=== PATIENT | male | born 1955 | race Caucasian/White ===

== ENCOUNTER 2017-01-15 12:01 | Emergency (ER) | payer MEDICAID ==
[2017-01-15 12:07] VITALS: RESP 16
[2017-01-15] MEDS ORDERED: OXYCODONE/APAP 5/325 TAB PO ONE (12:44)
[2017-01-15] MEDS ORDERED: LORazepam 1 MG TAB PO ONE (12:45)
--- NOTE | 2017-01-15 12:49 | EDPHY ---
H & P Stated Complaint: pt states has abcess near his umbilicus - Personal History Current Tetanus/Diphtheria Vaccine: Unsure - Medical/Surgical History Hx Asthma: No Hx Chronic Respiratory Disease: No Hx Diabetes: No Hx Cardiac Disease: No Hx Renal Disease: No Hx Cirrhosis: No Hx Alcoholism: Yes Hx HIV/AIDS: No Hx Splenectomy or Spleen Trauma: No Other PMH: upper GI bleed, hernia repair, knee, back surgery. PTSD, TRAUMATIC BRAIN INJURY - Social History Smoking Status: Never smoked Time Seen by Provider: 01/15/17 12:36 HPI/ROS: I examined the patient at the request of Anne Dahl PA-C. Probable umbilical hernia. Plan for ultrasound for further evaluation. (Lobo Maria) CHIEF COMPLAINT: "I think I have an abscess on my stomach HISTORY OF PRESENT ILLNESS: 61-year-old homeless male complaining of 3 days of umbilical pain, concerned he may have an abscess in his umbilicus. No nausea or vomiting. No fever no chills. Bowel movements have been normal. No trauma. PRIMARY CARE PROVIDER: none REVIEW OF SYSTEMS: A ten point review of systems was performed and is negative with the exception of the items mentioned in the HPI PAST MEDICAL & SURGICAL HISTORY: Bilateral inguinal herniorrhaphy SOCIAL HISTORY:homeless PHYSICAL EXAM (Prior to examination, patient consented to physical exam, hands were washed and my usual and customary physical exam procedures followed) 1) GENERAL: Well-developed, well-nourished, alert and oriented. Appears to be in no acute distress. 2) HEAD: Normocephalic, atraumatic 3) HEENT: Pupils equal, round, reactive to light bilaterally. Sclera anicteric. 4) NECK: Full range of motion, no meningeal signs. 5) LUNGS: Clear auscultation bilaterally, no wheezes, no rhonchi, no retractions. 6) HEART: Regular rate and rhythm, no murmur, no heave, no gallop. 7) ABDOMEN: No guarding, evaluation of the patient's umbilicus reveals no discoloration, no signs of cutaneous abnormality, no signs of gangrene. He does have a palpable mass consistent with an umbilical hernia , 8) MUSCULOSKELETAL: No peripheral edema or discoloration. 9) BACK: no obvious trauma, no visual or palpable abnormality. 10) SKIN: No rash, no petechiae. 11) Psychiatric: Patient is oriented X 3, there is no agitation. DIFFERENTIAL DIAGNOSIS: in no particular order including but limited to umbilical hernia, strangulated hernia, incarcerated hernia (Shanelle Dahl) Constitutional: Initial Vital Signs Temperature (C) 36.5 C 01/15/17 12:05 Heart Rate 85 01/15/17 12:05 Respiratory Rate 16 01/15/17 12:05 Blood Pressure 144/94 H 01/15/17 12:05 O2 Sat (%) 95 01/15/17 12:05 O2 Delivery Mode Room Air Allergies/Adverse Reactions: No Known Allergies Allergy (Verified 01/15/17 12:04) Home Medications: Medication Instructions Recorded NK [No Known Home Meds] 01/15/17 Medical Decision Making - Diagnostics Imaging Results: Imaging Impressions Abdomen CT 01/15/17 13:54 Impression: 1. Small periumbilical abdominal wall hernia defect with inflamed herniated mesenteric fat. Recommend surgical consult. 2. L4-L5: Degenerative disk disease and facet arthropathy resulting in moderate central canal stenosis. Findings and recommendations discussed with Emergency Department physician's appeals assistant, Shanelle Dahl, at 1457 hours, 01/15/2017. Final report concurs with initial preliminary interpretation. ED Course/Re-evaluation: 3:01 p.m.: Phone consultation with Dr. Carolyn Gil who will come to the ER to evaluate patient 3:23 p.m.: Patient informs me that he has to leave in order to attend to personal matters, states that he cannot stay. I highly encouraged him to states that he made evaluated by the general surgeon however he declines this, states that [facility]. Given usual customary hernia precautions instructions. Given Dr. Carolyn Gil contact information. I believe him to be a competent decision maker (Shanelle Dahl) - Data Points Laboratory Results: Laboratory Results 01/15/17 13:55 01/15/17 13:55 01/15/17 01/15/17 01/15/17 13:56 13:55 13:55 WBC 7.47 10^3/uL 10^3/uL (3.80-9.50) RBC 4.65 10^6/uL 10^6/uL (4.40-6.38) Hgb 15.8 g/dL g/dL (13.7-17.5) POC Hgb 15.0 gm/dL gm/dL (13.7-17.5) Hct 43.3 % % (40.0-51.0) POC Hct 44 % % (40-51) MCV 93.1 fL fL (81.5-99.8) MCH 34.0 pg pg (27.9-34.1) MCHC 36.5 g/dL g/dL (32.4-36.7) RDW 13.2 % % (11.5-15.2) Plt Count 280 10^3/uL 10^3/uL (150-400) MPV 8.8 fL fL (8.7-11.7) Neut % (Auto) 69.0 % % (39.3-74.2) Lymph % (Auto) 23.4 % % (15.0-45.0) [place] % (Auto) 5.5 % % (4.5-13.0) Eos % (Auto) 0.9 % % (0.6-7.6) Baso % (Auto) 0.8 % % (0.3-1.7) Nucleat RBC Rel Count 0.0 % % (0.0-0.2) Absolute Neuts (auto) 5.15 10^3/uL 10^3/uL (1.70-6.50) Absolute Lymphs (auto) 1.75 10^3/uL 10^3/uL (1.00-3.00) Absolute Monos (auto) 0.41 10^3/uL 10^3/uL (0.30-0.80) Absolute Eos (auto) 0.07 10^3/uL 10^3/uL (0.03-0.40) Absolute Basos (auto) 0.06 10^3/uL 10^3/uL (0.02-0.10) Absolute Nucleated RBC 0.00 10^3/uL 10^3/uL (0-0.01) Immature Gran % 0.4 % % (0.0-1.1) Immature Gran # 0.03 10^3/uL 10^3/uL (0.00-0.10) POC Sodium 140 mEq/L mEq/L (134-144) Sodium 138 mEq/L mEq/L (134-144) POC Potassium 3.4 mEq/L mEq/L (3.3-5.0) Potassium 3.9 mEq/L mEq/L (3.5-5.2) POC Chloride 103 mEq/L mEq/L (97-110) Chloride 103 mEq/L mEq/L (97-110) Carbon Dioxide 23 mEq/l mEq/l (22-31) Anion Gap 12 mEq/L mEq/L (8-16) POC BUN 11 mg/dL mg/dL (7-23) BUN 12 mg/dL mg/dL (7-23) Creatinine 0.8 mg/dL mg/dL (0.7-1.3) POC Creatinine 0.8 mg/dL mg/dL (0.7-1.3) Estimated GFR > 60 Glucose 77 mg/dL mg/dL (70-100) POC Glucose 85 mg/dL mg/dL (70-100) Calcium 9.0 mg/dL mg/dL (8.5-10.4) Medications Given: Discontinued Medications Lorazepam (Ativan) 1 mg PO EDNOW ONE Stop: 01/15/17 12:46 Last Admin: 01/15/17 13:05 Dose: 1 mg Oxycodone/Acetaminophen (Percocet 5/325) 1 tab PO EDNOW ONE Stop: 01/15/17 12:45 Last Admin: 01/15/17 13:04 Dose: 1 tab Point of Care Test Results: 01/15/17 13:56 POC Sodium 140 POC Potassium 3.4 POC Chloride 103 POC BUN 11 POC Creatinine 0.8 POC Glucose 85 Departure - Departure Disposition: Home, Routine, Self-Care Clinical Impression: Umbilical hernia Condition: Good Instructions: Umbilical Hernia (ED) Additional Instructions: In my medical opinion you necessitate further evaluation from the emergency department including evaluation by surgeon. You have declined this. You may return to the emergency department at any point for re-evaluation. You have been given the name of the general surgeon Dr. Carolyn Gil. Please make an appointment with her. Referrals: Carolyn Gil MD [Medical Doctor] - 1 day without fail (Dr Gil is a surgeon)
[2017-01-15 14:09] LABS: % IMMATURE GRANULYOCYTES 0.4 % (0.0-1.1); ABSOLUTE IMMATURE GRANULOCYTES 0.03 10^3/uL (0.00-0.10); ADD DIFF? NO; ADD MORPH? NO; ADD SCAN? NO; ATYPICAL LYMPHOCYTE FLAG 0 (0-99); FRAGMENT RBC FLAG 0 (0-99); HEMATOCRIT 43.3 % (40.0-51.0); HEMOGLOBIN 15.8 g/dL (13.7-17.5); LEFT SHIFT FLG 0 (0-99); LIPEMIA HEMOLYSIS FLAG 90 (0-99); MEAN CELL HEMOGLOBIN CONCENTR. 36.5 g/dL (32.4-36.7); MEAN CELL VOLUME 93.1 fL (81.5-99.8); MEAN PLATELET VOLUME 8.8 fL (8.7-11.7); PLATELET CLUMPS FLAG 0 (0-99); PLATELET COUNT 280 10^3/uL (150-400); RED BLOOD CELL COUNT 4.65 10^6/uL (4.40-6.38); RED CELL DISTRIBUTION WIDTH 13.2 % (11.5-15.2)
[2017-01-15] MEDS ORDERED: IOPAMIDOL (ISOVUE-300) 100 ML BTL ONE (14:09)
[2017-01-15 14:21] LABS: ANION GAP 12 mEq/L (8-16); CARBON DIOXIDE 23 mEq/l (22-31); CHLORIDE 103 mEq/L (97-110); CREATININE 0.8 mg/dL (0.7-1.3); GLOMERULAR FILTRATION RATE > 60; GLUCOSE 77 mg/dL (70-100); POTASSIUM 3.9 mEq/L (3.5-5.2); SODIUM 138 mEq/L (134-144)
[2017-01-15 15:43] VITALS: BP 128/76; PULSE 81; TEMP 99.7; O2SAT 97
--- NOTE | 2017-01-15 17:14 | GCON ---
[f rep st] CONSULTATION DATE OF CONSULTATION: 01/15/2017 CHIEF COMPLAINT: Umbilical hernia. HISTORY OF PRESENT ILLNESS: The patient is a 61-year-old man who noticed a bulge of his left umbilic us about 3 days ago. It has been increasing in size and becoming more tender. He denies any overlyi ng skin changes, such as redness, swelling, or an open wound. He was originally worried about an inf ection. He denies any nausea, vomiting, fevers, chills, change in bowel habits, or difficulties with urination. He had an abdominal CT performed, which showed a small periumbilical hernia with incarce rated fat. When asked about his availability for surgery, the patient states that he is homeless, an d he has to get back to his camp site this evening in order to ensure that his stuff is safe, and can not have surgery today. PAST MEDICAL HISTORY: Traumatic brain injury. PAST SURGICAL HISTORY: Bilateral inguinal hernia repairs, knee replacement, shoulder replacement, ba ck surgery. ALLERGIES: No known drug allergies. SOCIAL HISTORY: He denies tobacco or recreational drug use. He is homeless. FAMILY HISTORY: Not obtained. REVIEW OF SYSTEMS: A 10-point review of systems negative aside from the HPI. PHYSICAL EXAMINATION: GENERAL: Well-developed, well-nourished man, in no acute distress. HEENT: N ormocephalic, atraumatic. No hearing deficits. Pupils equal and round. No scleral icterus. Mucous membranes moist. NECK: Trachea midline. RESPIRATORY: Clear to auscultation bilaterally. No incr eased work of breathing. CARDIOVASCULAR: Regular rate and rhythm. No peripheral edema. ABDOMEN: Bowel sounds heard throughout, soft, nondistended. Small left periumbilical hernia, not reducible. No overlying skin changes, very tender to palpation. MUSCULOSKELETAL: Normal gait. Normal nails. SKIN: Warm and dry. PSYCH: Mood and affect normal. NEURO: Grossly intact. IMPRESSION AND PLAN: A 61-year-old man with an incarcerated umbilical hernia. He is unwilling to un dergo surgical repair at this time, but is available later in the week for elective repair. He will come to our office to confirm a surgery date and time, but likely this coming Saturday. We discussed r isks of surgery including, but not limited to, heart attack, stroke, blood clots or . We discus sed risk of infection, bleeding, damage to surrounding structures, or recurrence. He understands the risks and would like to proceed. We anticipate this to be an outpatient procedure. Warning signs w ere given for any worsening symptoms to return to the emergency room. He understands to call with wo rsening symptoms, questions, or concerns. Case was discussed with Dr. Carolyn Gil. /[id number]/MODL
== END 2017-01-15 15:35 | disposition home or self-care (01) ==
DX: K42.9 Umbilical hernia without obstruction or gangrene (principal)
CPT/HCPCS: 82947-QW; Q9967

== ENCOUNTER 2017-02-19 13:09 | Emergency (ER) | payer MEDICAID ==
--- NOTE | 2017-02-19 13:20 | EDPHY ---
H & P Time Seen by Provider: 02/19/17 13:19 HPI/ROS: CHIEF COMPLAINT: Chronic low back pain HISTORY OF PRESENT ILLNESS: The patient presents to the ED with complaints of chronic low back pain with bilateral lower extremity radiculopathy. The patient reportedly has a history of prior laminectomy. He has had chronic back pain with ongoing sharp referred pain into his legs over the past year and half. The patient has not had any recent follow-up appointment with either his primary care provider or spine surgeon. The patient denies bowel or bladder dysfunction. REVIEW OF SYSTEMS: A comprehensive 10 point review of systems is otherwise negative aside from elements mentioned in the history of present illness. Source: Patient - Medical/Surgical History Hx Asthma: No Hx Chronic Respiratory Disease: No Hx Diabetes: No Hx Cardiac Disease: No Hx Renal Disease: No Hx Cirrhosis: No Hx Alcoholism: Yes Hx HIV/AIDS: No Hx Splenectomy or Spleen Trauma: No Other PMH: upper GI bleed, hernia repair, knee, back surgery. PTSD, TRAUMATIC BRAIN INJURY - Social History Smoking Status: Never smoked - Physical Exam Exam: General Appearance: Alert, no distress Eyes: Pupils equal and round no pallor or injection ENT, Mouth: Mucous membranes moist Respiratory: There are no retractions, lungs are clear to auscultation Cardiovascular: Regular rate and rhythm Gastrointestinal: Abdomen is soft and nontender, no masses, bowel sounds normal Neurological: Alert and oriented x4, 5/5 strength noted bilateral lower extremities, DTRs 2+ bilaterally, no clonus, no saddle anesthesia Skin: Warm and dry, no rashes Musculoskeletal: Neck is supple nontender Extremities: symmetrical, full range of motion Constitutional: Initial Vital Signs Temperature (C) 36.3 C 02/19/17 13:20 Heart Rate 80 02/19/17 13:20 Respiratory Rate 18 02/19/17 13:20 Blood Pressure 115/67 02/19/17 13:20 O2 Sat (%) 93 02/19/17 13:20 O2 Delivery Mode Room Air Allergies/Adverse Reactions: No Known Allergies Allergy (Verified 02/19/17 13:20) Home Medications: Medication Instructions Recorded Cyclobenzaprine [Flexeril 10 MG 10 mg PO TID PRN #15 tab 02/19/17 (*)] Lidocaine 5% [Lidoderm 5% Patch 1 ea TD DAILY #12 patch 02/19/17 (*)] methylPREDNISolone [Medrol Dose 1 each PO AD #1 ea 02/19/17 Avery] Medical Decision Making ED Course/Re-evaluation: The patient presents to the ED with complaints of chronic sciatica. The patient has no evidence of a neurosurgical emergency on his current exam. There is nothing to suggest acute cauda equina syndrome. The patient will be given a prescription for Solu-Medrol, Flexeril and advised to continue to take NSAIDs. He should follow up with his primary care provider at [facility]. Departure - Departure Disposition: Home, Routine, Self-Care Clinical Impression: Sciatica Condition: Good Instructions: Sciatica (ED) Additional Instructions: 1. Please take steroids as directed 2. Flexeril as needed for muscle relaxation 3. Take Ibuprofen or Motrin 600 mg by mouth three times a day. 4. Please schedule a follow-up appointment with your primary care provider. Referrals: Shelby Ramos, PAC [Primary Care Provider] - As per Instructions
[2017-02-19 13:22] VITALS: RESP 18; TEMP 97.3
[2017-02-19 14:07] VITALS: BP 116/75; PULSE 89; O2SAT 96
--- NOTE | 2017-02-19 14:14 | ASMTCAGE ---
CAGE Do you feel you ought to Answers: Yes cut down on your drinking or drug use? Do people annoy you by Answers: No criticizing your drinking or drug use? Do you drink or use drugs Answers: No first thing in the morning ([employer])? Date Signed: 02/19/2017 02:13 PM Electronically Signed By:María Lawson RN
--- NOTE | 2017-02-19 14:22 | ASDISCHSUM ---
Discharge Information Plan Status:Homeless/Snf Medically Cleared to Leave: Discharge Date: CM D/C Disposition:Streets (Homeless) ADT D/C Disposition:Home, Routine, Self-Care Projected Discharge Date: Transportation at D/C:Self Discharge Delay Reason: Follow-Up Date: Discharge Slot: Final Diagnosis: Placement Information Patient Contact Information Contact Name:YEIMY Relationship: Address: Home Phone: Work Phone: City: Alternate Phone: State/[employer] Code: Email: Financial Information Financial Class:MD Primary Plan Desc:MEDICAID HEALTH [employer] Primary Plan Number:[id number] Secondary Plan Desc: Secondary Plan Number: Assessment Information CAGE Questionnaire CAGE Do you feel you ought to Answers: Yes cut down on your drinking or drug use? Do people annoy you by Answers: No criticizing your drinking or drug use? Do you drink or use drugs Answers: No first thing in the morning ([employer] Pinner)? Date Signed: 02/19/2017 02:13 PM Electronically Signed By:María Lawson RN LACE BRIA Acuity / Level of Care Answers: No. Emergency dept visits in Answers: 2 last 6 months Score: 2 Date Signed: 02/19/2017 02:14 PM Electronically Signed By:María Lawson RN [facility] CM Progress Note CM Note CM Note Notes: Spoke with patient about his homelessness, alcohol abuse and following up with his PCP, Shelby Ramos at [facility]. Patient states he "wishes he could cut down on his drinking" and that him and his daughter had a long discussion about it recently. Pt states he doesn't want to use opiates and that is why he drinks alcohol, for pain relief. Patient states he has been staying at the local shelters through [facility] and has stayed at [facility] as well. He states he has completed [employer] Entry. He also states he has a camp up near [place]. Patient has various backpacks and personal belongings, including a very large bag of large, long tree branches/sticks. This CM offered to call and make a follow-up appt with Shelby but patient states he plans on going to [facility] this afternoon and signing up for the next available appt with Shelby. Patient provided prescriptions, coffee. Date Signed: 02/19/2017 02:20 PM Electronically Signed By:María Lawson RN Intervention Information
== END 2017-02-19 14:29 | disposition home or self-care (01) ==
LOC: EDUNIT#
DX: M54.30 Sciatica, unspecified side (principal)

== ENCOUNTER 2017-03-22 23:14 | Emergency (ER) | payer MEDICAID ==
[2017-03-22 23:20] VITALS: BP 161/95; PULSE 100; RESP 18; O2SAT 99
[2017-03-22 23:22] VITALS: TEMP 98.2
--- NOTE | 2017-03-22 23:25 | EDPHY ---
H & P Stated Complaint: Medical clearance for long term HPI/ROS: HPI The patient presents for medical clearance for long term. Apparently, [place]. He began combative with the police had to take him down. He is now complaining of lower back pain due to sciatica. He also sustained a scalp laceration. He arrives in a spit mask in 4 point restraints because of his combative behavior. He denies any loss of consciousness, headache, vision changes, vomiting, weakness of his arms or legs. REVIEW OF SYSTEMS Constitutional: No fever, no chills. Eyes: No discharge. ENT: No sore throat. Cardiovascular: No chest pain, no palpitations. Respiratory: No cough, no shortness of breath. Gastrointestinal: No abdominal pain, no vomiting. Genitourinary: No hematuria. Musculoskeletal: No back pain. Skin: No rashes. Neurological: No headache. PMHx: History of GERD, history of sciatica per his report Soc Hx: Homeless, history of alcohol abuse PHYSICAL General Appearance: Alert, in 4 point restraints with spit mask on Head: There is a 1 cm occipital scalp laceration which is superficial with no active bleeding Eyes: Pupils equal and round no pallor or injection ENT, Mouth: Mucous membranes moist Respiratory: There are no retractions, lungs are clear to auscultation Cardiovascular: Regular rate and rhythm Gastrointestinal: Abdomen is soft and non-tender, no masses, bowel sounds normal Neurological: A&O, moves all extremities Skin: Warm and dry, no rashes Musculoskeletal: Neck is supple non tender Extremities: symmetrical, full range of motion Psychiatric: Patient is oriented X 3, there is no agitation Source: Patient, Police, EMS Exam Limitations: No limitations - Medical/Surgical History Hx Asthma: No Hx Chronic Respiratory Disease: No Hx Diabetes: No Hx Cardiac Disease: No Hx Renal Disease: No Hx Cirrhosis: No Hx Alcoholism: Yes Hx HIV/AIDS: No Hx Splenectomy or Spleen Trauma: No Other PMH: upper GI bleed, hernia repair, knee, back surgery. PTSD, TRAUMATIC BRAIN INJURY - Social History Smoking Status: Never smoked Constitutional: Initial Vital Signs Temperature (C) 36.8 C 03/22/17 23:16 Heart Rate 100 03/22/17 23:16 Respiratory Rate 18 03/22/17 23:16 Blood Pressure 161/95 H 03/22/17 23:16 O2 Sat (%) 99 03/22/17 23:16 O2 Delivery Mode Room Air Allergies/Adverse Reactions: No Known Allergies Allergy (Verified 02/19/17 13:20) Home Medications: Medication Instructions Recorded Cyclobenzaprine [Flexeril 10 MG 10 mg PO TID PRN #15 tab 02/19/17 (*)] Lidocaine 5% [Lidoderm 5% Patch 1 ea TD DAILY #12 patch 02/19/17 (*)] methylPREDNISolone [Medrol Dose 1 each PO AD #1 ea 02/19/17 Avery] Medical Decision Making Differential Diagnosis: This is a 62-year-old male with history of homelessness, alcohol abuse, GERD, sciatica who presents brought in by paramedics and police for medical clearance for long term. [place] was [place] his head against a wall and then was combative with police requiring takedown. On exam, he is complaining of low back pain. He says this is usual for him and is unchanged recently. He also had a scalp laceration without any other signs of external trauma. He by nexus 2 criteria does not meet criteria for CT scan of his head. Scalp laceration is non gaping, well approximated, superficial with no active bleeding, thus I feel repair is not needed. Tetanus vaccine is up-to-date. His back pain seems quite chronic and he is no concerning features on his exam. He will be medically cleared for long term. Departure - Departure Disposition: Law Enforcement/Court/Skilled Nursing Clinical Impression: Medical clearance for incarceration Laceration of scalp Qualifiers: Encounter type: initial encounter Qualified Code(s): S01.01XA - Laceration without foreign body of scalp, initial encounter Head injury Qualifiers: Encounter type: initial encounter Qualified Code(s): S09.90XA - Unspecified injury of head, initial encounter Lower back pain Qualifiers: Chronicity: chronic Back pain laterality: midline Sciatica presence: with sciatica Sciatica laterality: sciatica laterality unspecified Qualified Code(s) : M54.40 - Lumbago with sciatica, unspecified side Condition: Good Instructions: Head Injury (ED) Additional Instructions: Please return to the emergency department if you are worse in any way. You should use antibiotic ointment and a dressing on your head wound. It did not need any adonay are stitches because it is very superficial. If you develop a headache, vomiting, changes in her vision, you should return to the emergency department. Referrals: [facility],. [Clinic] - As per Instructions
== END 2017-03-22 23:37 ==
LOC: EDUNIT#
DX: S01.01XA Laceration without foreign body of scalp, initial encounter (principal); S39.92XA Unspecified injury of lower back, initial encounter; W22.8XXA Striking against or struck by other objects, initial encounter; Y92.521 Bus station as the place of occurrence of the external cause

== ENCOUNTER 2017-03-25 01:56 | Emergency (ER) | payer MEDICAID ==
[2017-03-25] MEDS ORDERED: KETOROLAC 15 MG/1 ML SDV IM ONE (02:06)
[2017-03-25 02:07] VITALS: TEMP 98.6
[2017-03-25] MEDS ORDERED: ONDANSETRON DISINTEGRATING 4 MG TAB PO ONE (02:07)
[2017-03-25 02:42] LABS: % IMMATURE GRANULYOCYTES 0.4 % (0.0-1.1); ABSOLUTE IMMATURE GRANULOCYTES 0.03 10^3/uL (0.00-0.10); ADD DIFF? NO; ADD MORPH? NO; ADD SCAN? NO; ATYPICAL LYMPHOCYTE FLAG 10 (0-99); FRAGMENT RBC FLAG 0 (0-99); HEMATOCRIT 41.9 % (40.0-51.0); HEMOGLOBIN 15.3 g/dL (13.7-17.5); LEFT SHIFT FLG 0 (0-99); LIPEMIA HEMOLYSIS FLAG 90 (0-99); MEAN CELL HEMOGLOBIN 34.2 pg (27.9-34.1); MEAN CELL HEMOGLOBIN CONCENTR. 36.5 g/dL (32.4-36.7); MEAN CELL VOLUME 93.7 fL (81.5-99.8); MEAN PLATELET VOLUME 8.6 fL (8.7-11.7); PLATELET CLUMPS FLAG 0 (0-99); PLATELET COUNT 215 10^3/uL (150-400); RED BLOOD CELL COUNT 4.47 10^6/uL (4.40-6.38); RED CELL DISTRIBUTION WIDTH 12.3 % (11.5-15.2)
[2017-03-25 03:01] LABS: ALANINE AMINOTRANSFERASE 37 IU/L (21-72); ALBUMIN 3.8 g/dL (3.5-5.0); ALKALINE PHOSPHATASE 72 IU/L (38-126); ANION GAP 12 mEq/L (8-16); ASPARTATE AMINOTRANSFERASE 24 IU/L (17-59); BILIRUBIN,TOTAL 0.5 mg/dL (0.1-1.4); CARBON DIOXIDE 21 mEq/l (22-31); CHLORIDE 107 mEq/L (97-110); CREATININE 0.7 mg/dL (0.7-1.3); GLOMERULAR FILTRATION RATE > 60; GLUCOSE 95 mg/dL (70-100); POTASSIUM 4.3 mEq/L (3.5-5.2); SODIUM 140 mEq/L (134-144); TOTAL PROTEIN 6.1 g/dL (6.3-8.2)
--- NOTE | 2017-03-25 04:51 | EDPHY ---
H & P Stated Complaint: N/V/D x6 days HPI/ROS: HPI The [facility] for nausea, vomiting, diarrhea which have been present for the last 6 days. He is able to tolerate fluids though feels a grow mold in his stomach when he takes season. He vomited about once in the last 24 hr. He is having watery diarrhea , multiple episodes a day. He has mostly upset because he has a top [facility] at the [facility] and cannot easily walk back and forth to the bathroom. He does not have any abdominal pain or fever. He denies any bloody stools. He does report many people at the [facility] are sick with the same. REVIEW OF SYSTEMS Constitutional: No fever, no chills. Eyes: No discharge. ENT: No sore throat. Cardiovascular: No chest pain, no palpitations. Respiratory: No cough, no shortness of breath. Gastrointestinal: No abdominal pain, no vomiting. Genitourinary: No hematuria. Musculoskeletal: No back pain. Skin: No rashes. Neurological: No headache. PMHx: History of sciatica, traumatic brain injury Soc Hx: Homeless PHYSICAL General Appearance: Alert, no distress Eyes: Pupils equal and round no pallor or injection ENT, Mouth: Mucous membranes moist Respiratory: There are no retractions, lungs are clear to auscultation Cardiovascular: Regular rate and rhythm Gastrointestinal: Abdomen is soft and non-tender, no masses, bowel sounds normal Neurological: A&O, moves all extremities Skin: Warm and dry, no rashes Musculoskeletal: Neck is supple non tender Extremities: symmetrical, full range of motion Psychiatric: Patient is oriented X 3, there is no agitation Source: Patient Exam Limitations: No limitations - Personal History Current Tetanus/Diphtheria Vaccine: Yes - Medical/Surgical History Hx Asthma: No Hx Chronic Respiratory Disease: No Hx Diabetes: No Hx Cardiac Disease: No Hx Renal Disease: No Hx Cirrhosis: No Hx Alcoholism: Yes Hx HIV/AIDS: No Hx Splenectomy or Spleen Trauma: No Other PMH: upper GI bleed, hernia repair, knee, back surgery. PTSD, TRAUMATIC BRAIN INJURY - Social History Smoking Status: Never smoked Constitutional: Initial Vital Signs Temperature (C) 37 C 03/25/17 02:00 Heart Rate 85 03/25/17 02:00 Respiratory Rate 18 03/25/17 02:00 Blood Pressure 144/101 H 03/25/17 02:00 O2 Sat (%) 95 03/25/17 02:00 O2 Delivery Mode Room Air Allergies/Adverse Reactions: No Known Allergies Allergy (Verified 02/19/17 13:20) Home Medications: Medication Instructions Recorded Lidocaine 5% [Lidoderm 5% Patch 1 ea TD DAILY #12 patch 02/19/17 (*)] FLUoxetine 03/25/17 Loperamide HCl [Imodium A-D] 2 mg PO Q2H #30 capsule 03/25/17 Meloxicam 03/25/17 Ondansetron Odt [Zofran Odt 4 mg 4 mg PO Q4 PRN #10 tab 03/25/17 (*)] Ondansetron Odt [Zofran Odt 4 mg 4 mg PO Q4 PRN #10 tab 03/25/17 (*)] Medical Decision Making Differential Diagnosis: This is a 62-year-old man with past medical history of sciatica, currently homeless [facility] where he has likely contracted a gastroenteritis, now presenting with nausea, vomiting, diarrhea. On exam, his vital signs are normal, he does not appear clinically dehydrated, his abdominal exam is benign. Other causes of his symptoms are considered and include toxin mediated enterocolitis, gastritis, less likely appendicitis. In the emergency department he was observed for several hours. He was given a dose of Zofran 0 DT and was able to tolerate liquids without difficulty. Labs were checked and were unremarkable. He felt well enough to [facility] and was discharged there. - Data Points Laboratory Results: Laboratory Results 03/25/17 02:07 03/25/17 02:07 Medications Given: Discontinued Medications Ketorolac Tromethamine (Toradol) 15 mg IM EDNOW ONE Stop: 03/25/17 02:07 Last Admin: 03/25/17 02:19 Dose: 15 mg Ondansetron HCl (Zofran Odt) 4 mg PO EDNOW ONE Stop: 03/25/17 02:08 Last Admin: 03/25/17 02:18 Dose: 4 mg Departure - Departure Disposition: Home, Routine, Self-Care Clinical Impression: Nausea vomiting and diarrhea Condition: Good Instructions: Acute Nausea and Vomiting (ED) Referrals: Shelby Ramos, PAC [Primary Care Provider] - As per Instructions Prescriptions: Loperamide HCl [Imodium A-D] 2 mg PO Q2H #30 capsule Ondansetron Odt [Zofran Odt 4 mg (*)] 4 mg PO Q4 PRN #10 tab PRN Reason: Nausea/Vomiting, Can'T Take Po Ondansetron Odt [Zofran Odt 4 mg (*)] 4 mg PO Q4 PRN #10 tab PRN Reason: Nausea/Vomiting, Can'T Take Po
[2017-03-25 05:13] VITALS: BP 135/94; PULSE 71; RESP 16; O2SAT 94
== END 2017-03-25 05:05 | disposition home or self-care (01) ==
LOC: EDUNIT#
DX: R11.2 Nausea with vomiting, unspecified (principal); R19.7 Diarrhea, unspecified
CPT/HCPCS: J1885

== ENCOUNTER 2017-04-19 13:02 | Inpatient (IN) | payer MEDICAID ==
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
[2017-04-19 13:25] LABS: PLATELET COUNT 314 10^3/uL (150-400)
--- NOTE | 2017-04-19 15:31 | ASMTCMCOM ---
CM Note CM Note Notes: Per MD, patient had been living in a storage unit and was defecating on himself and in the storage unit. He is being admitted for pancreatitis. I went in to speak with patient - his brother Eligio was in the room with him and had pura him some clean clothes. Eligio is also homeless and says he stays at the [facility]. Says he is working on getting housing. Patient says he stays at Nursing Home and outside and does not live in his storage unit. He says he was feeling sick and went to lie down there and lost control of his bowels. Patient endorses drinking, realizes he should quit but also doesn't really see the benefit in quitting. 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 He feels that he has superpowers when he's on it, but that it's made him meddle in affairs that he shouldn't. He didn't give any details about this, and when I asked him if he'd committed any crimes, he said no. He seems very distraught about his addiction to this drug, he feels like he proselytizes it when he's using, and therefore people keep trying to sell it to him. He desperately wants to quit. We talked about cutting off ties with people who use it or sell it, but obviously that would require much more effort and capactiy than he likely has due to his circumstances. Patient is chronically homeless, he knows what sheltering options are out there. He has Medicaid and collects about 750/month in disability. Case Managment will assist in whatever way we can. Date Signed: 04/19/2017 03:31 PM Electronically Signed By:Chelo Alexandre RN
[2017-04-19] MEDS ORDERED: Meloxicam [Mobic 15 Mg] PO PRN (16:24)
[2017-04-19] MEDS ORDERED: ACETAMINOPHEN 325 MG TAB PO PRN (16:40)
[2017-04-19] MEDS ORDERED: ONDANSETRON DISINTEGRATING 4 MG TAB PO PRN (16:40)
[2017-04-19] MEDS ORDERED: ONDANSETRON 4 MG/2 ML VIAL IVP PRN (16:40)
[2017-04-19] MEDS ORDERED: LORazepam 2 MG/ML INJ IVP PRN (16:40)
[2017-04-19] MEDS: NS 1,000 ML IV SCH (17:00)
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
--- NOTE | 2017-04-19 17:44 | PDMN ---
Medical Necessity Medical necessity: C/M review: est. > 2 MN LOS for eval and TX of acute questionable pancreatitis, acute and persistent diarrhea, confusion, leukocytosis, elevated lipase requiring ongoing IV fluids, IV pain meds, IV antiemetics, comorbid history of possible alcoholism, depression per H/P.
[2017-04-20] MEDS: NS 1,000 ML IV SCH (01:16)
[2017-04-20 05:33] LABS: PLATELET COUNT 222 10^3/uL (150-400)
[2017-04-20] MEDS: FLUoxetine 20 MG CAP PO SCH (08:53)
[2017-04-20] MEDS: ENOXAPARIN 40 MG/0.4 ML SYR SC SCH (08:53)
--- NOTE | 2017-04-20 10:58 | HOSPPROG ---
Hospitalist Progress Note Assessment/Plan: 62-year-old male admitted because of confusion and numbed can't state in dehydration. He was noted on admission to have diarrhea nausea and vomiting an elevated lipase consistent with pancreatitis. He has undergone fluid hydration is improved but he is eating poorly and continued to state have nausea. The diarrhea has slowed but has not resolved -acute pancreatitis with an elevated lipase nausea and vomiting this may be secondary to his use of alcohol though he denies use of alcohol for the last 4 days. -2. Diarrhea nausea and vomiting with fluid dehydration on admission. Will continue his IV fluids and watch his p.o. intake. -acute confusion this appears to be resolving is likely secondary to the acute illness. -polysubstance abuse of methamphetamines and alcohol. He reports last use was 4 days [employer]. Will watch for signs of withdrawal and treat him on a [facility] protocol needed Subjective: Reports she feels weak and tired with some nausea. The diarrhea is slowly resolving there is no hematemesis or hematochezia or blood red blood per rectum Objective: Vital Signs Temp Pulse Resp BP Pulse Ox 36.8 C 61 16 128/80 H 95 04/20/17 08:00 04/20/17 08:00 04/20/17 08:00 04/20/17 08:00 04/20/17 08:00 Laboratory Results 04/20/17 05:19 04/20/17 05:19 04/19/17 04/20/17 04/21/17 05:59 05:59 05:59 Intake Total 1878 Output Total 550 Balance 1328 Laboratory Tests 04/19/17 04/19/17 04/20/17 13:10 13:10 05:19 WBC 12.01 H 6.83 Hgb 18.9 H 14.5 Albumin Lipase 1273 H 04/20/17 05:19 WBC Hgb Albumin 3.1 L D Lipase Admitted with the a confusion and unkempt state with feces all over in. Noted on admission was an elevated lipase though the patient was reported to be hungry. - Time Spent With Patient Time Spent with Patient: greater than 35 minutes Time Spent with Patient: Greater than 35 minutes spent on this patients care, greater than 50% of time spent counseling, educating, and coordinating care regarding the above mentioned plan. - Pending Discharge Pending Discharge Within 24 Hours: No Pending Discharge Within 48 Hours: Yes Pending Discharge Date: 04/22/17 Pending Discharge Time: 11:00 - Physical Exam Constitutional: no apparent distress, chronically ill appearing, unkempt Eyes: PERRL, anicteric sclera Ears, Nose, Mouth, Throat: moist mucous membranes, hearing normal Cardiovascular: regular rate and rhythym, no murmur, rub, or gallop Respiratory: no respiratory distress, no rales or rhonchi, clear to auscultation Gastrointestinal: normoactive bowel sounds, tenderness, guarding, distension Genitourinary: no bladder fullness Skin: warm Musculoskeletal: generalized weakness Neurologic: AAOx3, CN II-XII Intact Psychiatric: interacting appropriately ICD10 Worksheet Patient Problems: Problems Problem Status Onset Nausea vomiting and diarrhea Acute Pancreatitis Acute
[2017-04-20] MEDS: PANTOPRAZOLE SODIUM 40 MG TAB PO SCH (11:14)
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
[2017-04-21 05:22] LABS: PLATELET COUNT 236 10^3/uL (150-400)
[2017-04-21] MEDS: HYDROmorphONE/DILAUDID 1 MG/ML INJ IVP PRN (07:21)
[2017-04-21] MEDS: FLUoxetine 20 MG CAP PO SCH (08:36)
[2017-04-21] MEDS: ENOXAPARIN 40 MG/0.4 ML SYR SC SCH (08:36)
[2017-04-21] MEDS: PANTOPRAZOLE SODIUM 40 MG TAB PO SCH (08:36)
--- NOTE | 2017-04-21 15:20 | HOSPPROG ---
Hospitalist Progress Note Assessment/Plan: 62-year-old male admitted because of confusion and dehydration. He was noted on admission to have diarrhea nausea and vomiting an elevated lipase consistent with pancreatitis. He has undergone fluid hydration is improved but he is eating and continued report nausea. New problem today is elevated Bp and c/o burning stomach -acute pancreatitis with an elevated lipase nausea and vomiting this may be secondary to his use of alcohol though he denies use of alcohol for the last 4 days. Amylase is now declined and returned to normal. Abdominal exam is benign except for some epigastric tenderness. -2. Diarrhea nausea and vomiting with fluid dehydration. Will continue his IV fluids and watch his p.o. intake. -acute confusion this appears to be resolving is likely secondary to the acute illness. -mild hypertension: This may be secondary to a mild degree of withdrawal low shows no other signs of tremulousness agitation or sweating. I believe this simply could be watched. It also may be secondary to resolving pancreatitis. -polysubstance abuse of methamphetamines and alcohol. He reports last use was 4 days [employer]. Will watch for signs of withdrawal and treat him on a [facility] protocol needed Disposition: Discharge on April 22. Case management may be able to help with a placement. At this time he is homeless and will be going to a jail. Subjective: reports he feels like his stomach is burning Objective: Vital Signs Temp Pulse Resp BP Pulse Ox 36.8 C 66 16 154/94 H 96 04/21/17 11:43 04/21/17 11:43 04/21/17 11:43 04/21/17 11:43 04/21/17 11:43 Laboratory Results 04/21/17 04:35 04/21/17 04:35 04/20/17 04/21/17 04/22/17 05:59 05:59 05:59 Intake Total 1878 250 Output Total 550 550 Balance 1328 -300 - Time Spent With Patient Time Spent with Patient: greater than 35 minutes Time Spent with Patient: Greater than 35 minutes spent on this patients care, greater than 50% of time spent counseling, educating, and coordinating care regarding the above mentioned plan. - Pending Discharge Pending Discharge Within 24 Hours: Yes Pending Discharge Date: 04/22/17 Pending Discharge Time: 11:00 - Physical Exam Constitutional: no apparent distress Eyes: PERRL, anicteric sclera Ears, Nose, Mouth, Throat: moist mucous membranes, hearing normal Cardiovascular: regular rate and rhythym, no murmur, rub, or gallop Respiratory: no respiratory distress, no rales or rhonchi, clear to auscultation Gastrointestinal: normoactive bowel sounds, soft, non-tender abdomen, no palpable masses Genitourinary: no bladder fullness Skin: warm Musculoskeletal: full muscle strength Neurologic: AAOx3, CN II-XII Intact Psychiatric: interacting appropriately, depressed, flat affect ICD10 Worksheet Patient Problems: Problems Problem Status Onset Nausea vomiting and diarrhea Acute Pancreatitis Acute
[2017-04-22 05:19] LABS: PLATELET COUNT 231 10^3/uL (150-400)
[2017-04-22] MEDS: FLUoxetine 20 MG CAP PO SCH (08:48)
[2017-04-22] MEDS: ENOXAPARIN 40 MG/0.4 ML SYR SC SCH (08:48)
[2017-04-22] MEDS: PANTOPRAZOLE SODIUM 40 MG TAB PO SCH (08:48)
[2017-04-22] MEDS: HYDROmorphONE/DILAUDID 1 MG/ML INJ IVP PRN (08:59)
--- NOTE | 2017-04-22 09:17 | ASMTCMCOM ---
CM Note CM Note Notes: Chart reviewed. Met with patient to review dc plan of care. He wants to go [facility] but unfortunately they are closed for ML day. Will discuss with MD. He feels he is a great risk due to his addiction. CM to follow. Date Signed: 04/22/2017 09:16 AM Electronically Signed By:Mali Peraza RN
[2017-04-22 10:53] VITALS: RESP 16
[2017-04-22] MEDS ORDERED: PROTOCOL POTASSIUM 1 DOSE MISC PRN (14:00)
[2017-04-22] MEDS ORDERED: oxyCODONE IR 5 MG TAB PO PRN (14:08)
[2017-04-22] MEDS ORDERED: POTASSIUM CL 10 MEQ TAB PO ONE ×2 (16:16→20:36)
[2017-04-22] MEDS ORDERED: HYDROmorphone HCL/NS/PF 0.4 MG/2 ML SYR IVP PRN (16:26)
[2017-04-22] MEDS ORDERED: HYDROmorphONE/DILAUDID 1 MG/ML INJ IVP PRN (16:31)
[2017-04-22] MEDS ORDERED: IOPAMIDOL (ISOVUE-300) 100 ML BTL ONE (16:36)
--- NOTE | 2017-04-22 18:19 | HOSPPROG ---
Hospitalist Progress Note Assessment/Plan: * Possible pancreatitis - lipase has normalized, but he continues to have epigastric abd pain with eating, odynophagia, unintentional weight loss -check CT abd/pelvis -empiric PPI * Vertigo -check CT head * IVDA -check HIV, Hep C * Methamphetamine/Etoh abuse -desires cessation - currently no evidence for withdrawal * Toxic/metabolic encephalopathy - improved Subjective: continues to have abd pain with eating, feels like food getting stuck in lower esophagus. Unintentional weight loss, but he's unclear what part of that may have been from his out of control drug use. Quit IVDA 4 months ago, but still ingesting in other ways. Finally scared enough that he is motivated to change. Objective: Vital Signs Temp Pulse Resp BP Pulse Ox 36.8 C 58 L 16 127/84 H 96 04/22/17 14:43 04/22/17 14:43 04/22/17 14:43 04/22/17 14:43 04/22/17 14:43 Microbiology 04/21/17 22:30 Gastrointestinal Tract Panel (PCR) - Final Stool No Organism Detected Laboratory Results 04/22/17 05:01 04/22/17 05:01 04/21/17 04/22/17 04/23/17 05:59 05:59 05:59 Intake Total 250 500 Output Total 550 Balance -300 500 CXR viewed, my personal interpretation is - negative - Physical Exam Constitutional: no apparent distress, appears nourished, not in pain Cardiovascular: regular rate and rhythym, no murmur, rub, or gallop Respiratory: no respiratory distress, no rales or rhonchi, clear to auscultation Gastrointestinal: normoactive bowel sounds, soft, non-tender abdomen, no palpable masses Skin: no rashes or abrasions, no fluctuance, no induration Neurologic: AAOx3, sensation intact bilaterally Psychiatric: interacting appropriately, not anxious, not encephalopathic, thought process linear ICD10 Worksheet Patient Problems: Problems Problem Status Onset Nausea vomiting and diarrhea Acute Pancreatitis Acute
[2017-04-23 07:49] LABS: HEPATITIS C ANTIBODY TOTAL REACTIVE (NEGATIVE); HIV TYPE 1 AND 2 NEGATIVE (NEGATIVE)
[2017-04-23 08:21] VITALS: BP 151/98; PULSE 64; TEMP 98.4; O2SAT 95
[2017-04-23] MEDS: ENOXAPARIN 40 MG/0.4 ML SYR SC SCH (08:24)
[2017-04-23] MEDS: FLUoxetine 20 MG CAP PO SCH (08:24)
[2017-04-23] MEDS: PANTOPRAZOLE SODIUM 40 MG TAB PO SCH (08:24)
[2017-04-23] MEDS ORDERED: MAGNESIUM HYDROXIDE 30 ML UDCUP PO PRN (08:41)
[2017-04-23] MEDS ORDERED: LACTULOSE 20 GM/30 ML UDCUP PO PRN (08:41)
[2017-04-23] MEDS ORDERED: POLYETHYLENE GLYCOL 3350 17 GM PKT PO PRN (08:41)
[2017-04-23] MEDS ORDERED: BISACODYL 10 MG SUPP PR PRN (08:41)
[2017-04-23] MEDS ORDERED: SENNOSIDES/DOCUSATE SODIUM TAB PO SCH (09:00)
[2017-04-23] MEDS ORDERED: NS 1,000 ML IV SCH (10:15)
[2017-04-23] MEDS ORDERED: POTASSIUM/SODIUM PHOSPHATE 1 PKT PO SCH (13:00)
--- NOTE | 2017-04-23 16:50 | HOSPPROG ---
Hospitalist Progress Note Assessment/Plan: * Epigastric pain - difficult to tolerate PO -CT negative -empiric PPI -consider EGD if continues * Vertigo -CT head negative * IVDA * Hep C + * Methamphetamine/Etoh abuse -desires cessation - currently no evidence for withdrawal * Toxic/metabolic encephalopathy - improved Subjective: Feels motivated to quit, but scared that he can't trust himself if outpatient treatment. Wants inpatient tx. Objective: Vital Signs Temp Pulse Resp BP Pulse Ox 36.9 C 64 16 151/98 H 95 04/23/17 08:00 04/23/17 08:00 04/23/17 08:00 04/23/17 08:00 04/23/17 08:00 Laboratory Results 04/22/17 05:01 04/23/17 05:21 04/22/17 04/23/17 04/24/17 05:59 05:59 05:59 Intake Total 700 Balance 700 - Physical Exam Constitutional: no apparent distress, appears nourished, not in pain Cardiovascular: regular rate and rhythym, no murmur, rub, or gallop Respiratory: no respiratory distress, no rales or rhonchi, clear to auscultation Gastrointestinal: normoactive bowel sounds, soft, non-tender abdomen, no palpable masses Skin: no rashes or abrasions, no fluctuance, no induration Neurologic: AAOx3, sensation intact bilaterally Psychiatric: interacting appropriately, not anxious, not encephalopathic, thought process linear ICD10 Worksheet Patient Problems: Problems Problem Status Onset Nausea vomiting and diarrhea Acute Pancreatitis Acute
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
--- NOTE | 2017-04-24 12:06 | ASMTCMCOM ---
JUAN Note JUAN Note Notes: Met with patient who reports he really wants to quit using drugs and alcohol. We discussed his getting a taxi and going directly to [facility] walk in crisis center where they have a detox program he can enter immediately. JUAN agreed to make these arrangements for him when the is ready to d/c. Patient however, walked out in the afternoon AMA with his IV line still in his arm. He left his wallet and cell phone behind locked up in the room. Patient's belongings were turned over to security. Date Signed: 04/24/2017 12:05 PM Electronically Signed By:Remedios Thorpe LCSW
== END 2017-04-23 12:00 | disposition left against medical advice (07) | DRG 438 ==
LOC: EDBD → EDUNIT# → OBSVTOIN 15:49 → F3E 15:58
PROVIDERS: ADMIT Internal Medicine; ATTEND Internal Medicine
DX: K85.90 Acute pancreatitis without necrosis or infection, unspecified (principal); G92 Toxic encephalopathy; E86.0 Dehydration; F15.10 Other stimulant abuse, uncomplicated; F10.10 Alcohol abuse, uncomplicated; B19.20 Unspecified viral hepatitis C without hepatic coma; K23 Disorders of esophagus in diseases classified elsewhere; F43.10 Post-traumatic stress disorder, unspecified; Z59.0 Homelessness
CPT/HCPCS: 97161-GP; 97165-GO; G0472; J1170; J1650; J2405; Q9967

== ENCOUNTER 2017-11-29 23:04 | Emergency (ER) | payer MEDICAID ==
[2017-11-29] MEDS ORDERED: IBUPROFEN 600 MG TAB PO ONE (23:10)
[2017-11-29] MEDS ORDERED: HYDROCODONE/APAP 5/325 TAB PO ONE (23:10)
[2017-11-29] MEDS ORDERED: HYDROCODONE/APAP 5/325 TAB ONE (23:21)
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
[2017-11-30 00:55] VITALS: BP 131/74
== END 2017-11-30 00:55 | disposition home or self-care (01) ==
LOC: EDUNIT#
DX: M54.9 Dorsalgia, unspecified (principal)

== ENCOUNTER 2018-06-10 15:54 | Emergency (ER) | payer MEDICAID ==
[2018-06-10] MEDS ORDERED: LORazepam 2 MG/ML INJ IVP ONE (16:17)
[2018-06-10] MEDS ORDERED: NS 1,000 ML IV ONE (16:17)
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
[2018-06-10] MEDS ORDERED: CHLORDIAZEPOXIDE 25MG PREPK#6 BTL TAKEHOME ONE (17:47)
[2018-06-10 18:54] VITALS: BP 149/93
== END 2018-06-10 19:08 | disposition home or self-care (01) ==
DX: F10.230 Alcohol dependence with withdrawal, uncomplicated (principal); E86.9 Volume depletion, unspecified; Z87.820 Personal history of traumatic brain injury; Z96.651 Presence of right artificial knee joint; Z59.0 Homelessness
CPT/HCPCS: 96374; J2060

== ENCOUNTER 2018-09-03 14:37 | Emergency (ER) | payer MEDICAID | END 2018-09-03 16:16 | disposition home or self-care (01) ==